=== PATIENT | female | born 1995 | race Hispanic/Latino ===

== ENCOUNTER 2017-06-18 12:58 | Emergency (ER) | payer BC ==
[2017-06-18 13:25] LABS: Pregnancy Test - Urine (BHCG) Negative (Negative); Pregu Control Background? CLEAR/WHITE (CLR/WHITE); Pregu Control Bar Appear? YES (CONTROL BAR); Specific Gravity 1.031 (1.002-1.036)
--- NOTE | 2017-06-18 15:15 | CT ---
CT BRAIN WITHOUT CONTRAST: Comparison: None. History: Head injury after falling four stairs at noon and hitting the back of her head. Patient also complains of neck pain. Technique: Multiple contiguous axial images were obtained in a CT of the brain without contrast. FINDINGS: The brain is normal in morphology and attenuation without focal lesions or confluent areas of infarct ion. There is no evidence of hydrocephalus, intracranial hemorrhage, or extraaxial fluid collection. Soft tissue swelling is seen in the left posterior scalp. The underlying calvarium is unremarkable. T he visualized paranasal sinuses and mastoid air cells are well aerated. IMPRESSION: No evidence of acute intracranial abnormality. POS: [facility]
--- NOTE | 2017-06-18 15:23 | CT ---
CT CERVICAL SPINE WITHOUT CONTRAST: Comparison: None. History: Fell down stairs with head trauma and neck pain. Technique: Multiple contiguous axial images were obtained of the cervical spine without contrast. Sag ittal and coronal reformats were performed. FINDINGS: The vertebral bodies and intravertebral discs demonstrate normal height and alignment without fractur e or subluxation. No degenerative changes are seen. No prevertebral soft tissue swelling is present. The posterior facets are well aligned. Normal alignment of the skull base with the cervical spine is seen. IMPRESSION: No evidence of acute osseous abnormality of the cervical spine. POS: [facility]
== END 2017-06-18 15:12 | disposition home or self-care (01) ==
LOC: SCSER 12:58
DX: S06.9X1A Unspecified intracranial injury with loss of consciousness of 30 minutes or less, initial encounter (principal); W10.9XXA Fall (on) (from) unspecified stairs and steps, initial encounter
CPT/HCPCS: 70450; 72125; 81025